=== PATIENT | male | born 1990 | race Caucasian/White ===

== ENCOUNTER 2023-03-10 17:15 | Emergency (ER) | payer OTHER ==
[2023-03-10 18:55] VITALS: BP 120/83; PULSE 92; RESP 18; TEMP 98.5; BMI 29.6
== END 2023-03-10 20:35 | disposition home or self-care (01) ==
LOC: JER 17:15 → JERFT 17:15
DX: R05.9 Cough, unspecified (principal); R50.9 Fever, unspecified; J10.1 Influenza due to other identified influenza virus with other respiratory manifestations; Z20.822 Contact with and (suspected) exposure to COVID-19
CPT/HCPCS: 0241U-QW; 87651; 99283-25

== ENCOUNTER 2023-03-12 16:18 | Emergency (ER) | payer OTHER ==
[2023-03-12 17:03] VITALS: BP 142/83; PULSE 83; RESP 17; TEMP 97.6; BMI 29.8
== END 2023-03-12 20:05 | disposition home or self-care (01) ==
LOC: JER 16:18 → JERFT 16:18
DX: H11.31 Conjunctival hemorrhage, right eye (principal); H57.11 Ocular pain, right eye
CPT/HCPCS: 99282-25

== ENCOUNTER 2023-03-26 09:38 | Emergency (ER) | payer OTHER ==
[2023-03-26 10:24] VITALS: BP 120/73; PULSE 67; RESP 16; TEMP 98.6; BMI 31.1
[2023-03-26] MEDS ORDERED: IBUPROFEN 600 MG TABLET (FP) PO ONE ×2 (10:39→11:23)
== END 2023-03-26 11:46 | disposition home or self-care (01) ==
LOC: JERFT 09:38
DX: M25.511 Pain in right shoulder (principal); G89.29 Other chronic pain
CPT/HCPCS: 73030-TC-RT-FY; 99283-25

== ENCOUNTER 2024-01-03 17:06 | Emergency (ER) | payer OTHER ==
[2024-01-03 17:50] VITALS: BP 128/90; PULSE 72; RESP 18; TEMP 97.9; BMI 33.3
[2024-01-03 18:54] LABS: THROAT:GRP A STREP NOT DETECTED (NOTDETECTED)
== END 2024-01-03 18:55 | disposition home or self-care (01) ==
LOC: JERFT 17:06
DX: R05.9 Cough, unspecified (principal); J22 Unspecified acute lower respiratory infection; R09.89 Other specified symptoms and signs involving the circulatory and respiratory systems; Z20.822 Contact with and (suspected) exposure to COVID-19
CPT/HCPCS: 0241U-QW; 87651; 99283-25